=== PATIENT | male | born 1975 | race Hispanic/Latino ===

== ENCOUNTER 2016-12-05 11:27 | Outpatient (CLI) | payer MEDICARE ==
--- NOTE | 2016-12-05 11:54 | XRay Report ---
ROUTINE CHEST, TWO VIEWS: PA and lateral views demonstrate the heart and mediastinal contour to be of normal size and shape. The lungs are clear and fully expanded and the soft tissues and bony structures are normal. IMPRESSION: Normal study.
== END 2016-12-05 11:28 | disposition home or self-care (01) ==
LOC: SPVIMAG 11:27
DX: R05 Cough (principal)
CPT/HCPCS: 71020

== ENCOUNTER 2019-02-02 15:31 | Outpatient (CLI) | payer MEDICARE ==
--- NOTE | 2019-02-02 16:07 | XRay Report ---
XRAY CHEST TWO VIEWS: 02/02/19 15:31:00 CLINICAL: Cough. COMPARISON: 12/05/16 FINDINGS: Normal heart and pulmonary vasculature. The lungs are normally expanded and clear.The bones and soft tissues are unremarkable. IMPRESSION: Normal chest.
== END 2019-02-02 15:32 | disposition home or self-care (01) ==
LOC: SPVIMAG 15:31
DX: R05 Cough (principal)
CPT/HCPCS: 71046